=== PATIENT | female | born 1940 | race Caucasian/White ===

== ENCOUNTER 2018-12-25 01:14 | Observation (INO) | payer MEDICARE ==
[2018-12-25] MEDS ORDERED: IBUPROFEN 600 MG TAB PO STA (01:26)
[2018-12-25] MEDS ORDERED: ACETAMINOPHEN TAB 325 MG TAB PO STA (01:26)
--- NOTE | 2018-12-25 01:29 | ED ---
General Adult HPI - General Chief complaint: Chest Pain Stated complaint: Chest pain Time Seen by Provider: 12/25/18 01:26 Source: patient Mode of arrival: ambulatory Limitations: no limitations - History of Present Illness Initial comments: Bea is a pleasant 78-year-old female who presents to the emergency department today for evaluation of burning retrosternal chest pain and not feeling well. Patient reports that she lives in the [facility] but is visiting up here for a meditation retreat. Patient reports she was in her usual state of health throughout the day today. She states that in the afternoon she felt some right- sided chest pain and laid down and relax for a short while. She was able to eat dinner but then felt worsening epigastric and retrosternal chest pain. Patient discussed this discomfort with her friend who encouraged her to come the ER for further evaluation. Patient describes the pain as a burning and discomfort. She has only mild shortness of breath and palpitations. Patient reports she's been worked up for cardiac complaints in the past, she states that she has had a stress test and a cardiac computed tomography scan and was told that she had only minimal calcification of her arteries. She has no other cardiac history no history of arrhythmia she is on no antiplatelet or anticoagulant medications. Patient states that she feels the burning she is experiencing is probably related to asthma more than it is her heart. states that she has been told that she has asthma in the past 2 years but reports she is usually triggered by cats. - Related Data Allergies Allergy/AdvReac Type Severity Reaction Status Date / Time bee pollen Allergy Anaphylaxis Verified 12/25/18 01:21 ciprofloxacin [From Cipro] Allergy Rash/Hives Verified 12/25/18 01:21 Review of Systems ROS Statement: Those systems with pertinent positive or pertinent negative responses have been documented in the HPI. ROS Other: All systems not noted in ROS Statement are negative. Past Medical History Past Medical History: Cancer, Diabetes Mellitus, Hypertension Additional Past Medical History / Comment(s): Breast CA, osteroporosis, knee and wrist fx. History of Any Multi-Drug Resistant Organisms: None Reported Past Surgical History: Bariatric Surgery, Cholecystectomy, Tonsillectomy Additional Past Surgical History / Comment(s): Bariatric surgery 2002 Past Psychological History: No Psychological Hx Reported Smoking Status: Never smoker Past Alcohol Use History: Rare Past Drug Use History: None Reported General Exam - General Exam Comments Initial Comments: Physical Exam GENERAL: Patient is well-developed and well-nourished. Patient is nontoxic and well-hydrated and is in no distress. HENT: Normocephalic, Atraumatic. EYES: PERRL, EOMI PULMONARY: Unlabored respirations. No audible rales rhonchi or wheezing was noted. CARDIOVASCULAR: Irregularly irregular tachycardic Warm and well-perfused extremities ABDOMEN: Soft and nontender with normal bowel sounds. SKIN: Skin is clear with no lesions or rashes and otherwise unremarkable. : Deferred NEUROLOGIC: Patient is alert and oriented x3. Moving all extremities spontaneously MUSCULOSKELETAL: Normal extremities with adequate strength and full range of motion. No lower extremity swelling or edema. No calf tenderness. PSYCHIATRIC: Normal psychiatric evaluation Limitations: no limitations Course Vital Signs 12/25/18 12/25/18 12/25/18 01:16 03:46 04:33 Temperature 100.9 F H 98.2 F Pulse Rate 124 H 104 H 90 Respiratory 20 18 16 Rate Blood Pressure 147/84 118/61 118/61 O2 Sat by Pulse 97 97 97 Oximetry - Reevaluation(s) Reevaluation #1: Patient was reevaluated, her fever has resolved, her heart rate hasn't improved however she remains in A. fib with a rate in the 90s to low 100s at this time I do not feel any rate control is indicated, heparin will be started 12/25/18 03:30 Medical Decision Making - Medical Decision Making The patient was seen and evaluated, history is obtained from the patient Cardiac workup was initiated next an initial EKG reveals A. fib with RVR this is a new diagnosis for the patient Anti-paramedics and fluids were ordered Patient was reevaluated after antipyretics and was found that her heart rate had improved however she remains in A. fib Labs resulted with significant abnormalities including a potassium of only 2.6, by mouth and IV replacement was ordered Patient's heart rate normalized after IV fluids, there is no indication at this time for IV rate management IV heparin was ordered By mouth metoprolol was ordered Final given the patient is 78-year-old presented with acute chest pain and new- onset A. fib and RVR which is now normalized I will plan to admit the patient for evaluation by cardiology. Patient was agreeable with this plan. Admission orders were placed. Cardiology was consult it in the neck was ordered. - Lab Data Result diagrams: 12/25/18 01:50 12/25/18 01:50 Lab Results 12/25/18 12/25/18 12/25/18 Range/Units 01:50 01:50 01:50 WBC 14.2 H (3.8-10.6) k/uL RBC 4.77 (3.80-5.40) m/uL Hgb 12.6 (11.4-16.0) gm/dL Hct 41.8 (34.0-46.0) % MCV 87.5 (80.0-100.0) fL MCH 26.5 (25.0-35.0) pg MCHC 30.3 L (31.0-37.0) g/dL RDW 15.4 (11.5-15.5) % Plt Count 255 (150-450) k/uL Neutrophils % 84 % Lymphocytes % 10 % Monocytes % 5 % Eosinophils % 0 % Basophils % 0 % Neutrophils # 12.0 H (1.3-7.7) k/uL Lymphocytes # 1.4 (1.0-4.8) k/uL Monocytes # 0.7 (0-1.0) k/uL Eosinophils # 0.0 (0-0.7) k/uL Basophils # 0.0 (0-0.2) k/uL PT (9.0-12.0) sec INR (<1.2) APTT (22.0-30.0) sec Sodium 137 (137-145) mmol/L Potassium 2.6 L* (3.5-5.1) mmol/L Chloride 98 (98-107) mmol/L Carbon Dioxide 26 (22-30) mmol/L Anion Gap 13 mmol/L BUN 17 (7-17) mg/dL Creatinine 0.63 (0.52-1.04) mg/dL Est GFR (CKD-EPI)AfAm >90 (>60 ml/min/1.73 sqM) Est GFR (CKD-EPI)NonAf 87 (>60 ml/min/1.73 sqM) Glucose 182 H (74-99) mg/dL Plasma Lactic Acid Yousif 1.2 (0.7-2.0) mmol/L Calcium 8.0 L (8.4-10.2) mg/dL Total Bilirubin 0.7 (0.2-1.3) mg/dL AST 34 (14-36) U/L ALT 40 (9-52) U/L Alkaline Phosphatase 95 (38-126) U/L Troponin I (0.000-0.034) ng/mL Total Protein 6.8 (6.3-8.2) g/dL Albumin 4.2 (3.5-5.0) g/dL Urine Color Urine Appearance (Clear) Urine pH (5.0-8.0) Ur Specific [place] (1.001-1.035) Urine Protein (Negative) Urine Glucose (UA) (Negative) Urine Ketones (Negative) Urine Blood (Negative) Urine Nitrite (Negative) Urine Bilirubin (Negative) Urine Urobilinogen (<2.0) mg/dL Ur Leukocyte Esterase (Negative) 12/25/18 12/25/18 12/25/18 Range/Units 01:50 01:50 03:45 WBC (3.8-10.6) k/uL RBC (3.80-5.40) m/uL Hgb (11.4-16.0) gm/dL Hct (34.0-46.0) % MCV (80.0-100.0) fL MCH (25.0-35.0) pg MCHC (31.0-37.0) g/dL RDW (11.5-15.5) % Plt Count (150-450) k/uL Neutrophils % % Lymphocytes % % Monocytes % % Eosinophils % % Basophils % % Neutrophils # (1.3-7.7) k/uL Lymphocytes # (1.0-4.8) k/uL Monocytes # (0-1.0) k/uL Eosinophils # (0-0.7) k/uL Basophils # (0-0.2) k/uL PT 9.6 (9.0-12.0) sec INR 0.9 (<1.2) APTT 26.4 (22.0-30.0) sec Sodium (137-145) mmol/L Potassium (3.5-5.1) mmol/L Chloride (98-107) mmol/L Carbon Dioxide (22-30) mmol/L Anion Gap mmol/L BUN (7-17) mg/dL Creatinine (0.52-1.04) mg/dL Est GFR (CKD-EPI)AfAm (>60 ml/min/1.73 sqM) Est GFR (CKD-EPI)NonAf (>60 ml/min/1.73 sqM) Glucose (74-99) mg/dL Plasma Lactic Acid Yousif (0.7-2.0) mmol/L Calcium (8.4-10.2) mg/dL Total Bilirubin (0.2-1.3) mg/dL AST (14-36) U/L ALT (9-52) U/L Alkaline Phosphatase (38-126) U/L Troponin I <0.012 (0.000-0.034) ng/mL Total Protein (6.3-8.2) g/dL Albumin (3.5-5.0) g/dL Urine Color Yellow Urine Appearance Clear (Clear) Urine pH 5.5 (5.0-8.0) Ur Specific [place] 1.016 (1.001-1.035) Urine Protein Negative (Negative) Urine Glucose (UA) Negative (Negative) Urine Ketones 1+ H (Negative) Urine Blood Negative (Negative) Urine Nitrite Negative (Negative) Urine Bilirubin Negative (Negative) Urine Urobilinogen <2.0 (<2.0) mg/dL Ur Leukocyte Esterase Negative (Negative) - EKG Data -: EKG Interpreted by Me EKG Comments: EKG was obtained due to complaint of chest pain and tachycardia, EKG obtained at 1:25 AM, this is a narrow complex irregularly irregular rhythm consistent with A. fib with RVR. Normal axis, normal intervals, [facility] [place] 4, QTC [id number] acute ST elevations or depressions no evidence of acute ischemia or infarction. Disposition Clinical Impression: Atrial fibrillation with RVR, Chest pain Disposition: ADMITTED IP TO THIS HOSP Condition: Stable Is patient prescribed a controlled substance at d/c from ED?: No Referrals: None,Stated [REFERRING] - 1-2 days
[2018-12-25 01:58] LABS: Basophils % (A) 0 %; Eosinophils % (A) 0 %; HCT 41.8 % (34.0-46.0); HGB 12.6 gm/dL (11.4-16.0); Lymphocytes # (A) 1.4 k/uL (1.0-4.8); Lymphocytes % (A) 10 %; MCH 26.5 pg (25.0-35.0); MCHC 30.3 g/dL (31.0-37.0); MCV 87.5 fL (80.0-100.0); Mean Platelet Volume 7.1; Monocytes # (A) 0.7 k/uL (0-1.0); Monocytes % (A) 5 %; Neutrophils % (A) 84 %; Platelet Count 255 k/uL (150-450); RBC 4.77 m/uL (3.80-5.40); RDW 15.4 % (11.5-15.5); WBC 14.2 k/uL (3.8-10.6)
[2018-12-25] MEDS: SODIUM CHLORIDE 0.9% 1,000 ML IV SCH ×3 (02:07→21:51)
[2018-12-25 02:08] LABS: INR 0.9 (<1.2); Partial Thromboplastin Time 26.4 sec (22.0-30.0); Prothrombin Time 9.6 sec (9.0-12.0)
[2018-12-25 02:11] LABS: ALT 40 U/L (9-52); AST 34 U/L (14-36); African American GFR (CKD) >90 (>60 ml/min/1.73 sqM); Albumin 4.2 g/dL (3.5-5.0); Alkaline Phosphatase 95 U/L (38-126); Anion Gap 13 mmol/L; Blood Urea Nitrogen 17 mg/dL (7-17); Carbon Dioxide 26 mmol/L (22-30); Chloride 98 mmol/L (98-107); Glucose 182 mg/dL (74-99); Sodium 137 mmol/L (137-145); Total Bilirubin 0.7 mg/dL (0.2-1.3); Total Protein 6.8 g/dL (6.3-8.2)
[2018-12-25] MEDS ORDERED: MORPHINE SULFATE 4 MG/ML SYRINGE IVP STA (02:13)
[2018-12-25 02:16] LABS: Potassium 2.6 mmol/L (3.5-5.1)
[2018-12-25] MEDS ORDERED: Potassium Replacement Protocol 1 EACH MISC MISCELLANE PRN (02:19)
[2018-12-25] MEDS: POTASSIUM CHLORIDE ER 20 MEQ TAB.ER PO SCH ×3 (02:27→06:21)
[2018-12-25] MEDS: POTASSIUM CHLORIDE 10 MEQ in WATER FOR INJECTION 1 100ML.BAG IVPB SCH ×6 (02:36→10:30)
[2018-12-25] MEDS ORDERED: SODIUM CHLORIDE 0.9% 1,000 ML IV ONE (03:29)
[2018-12-25] MEDS ORDERED: HEPARIN SODIUM,PORCINE 5,000 UNIT/ML 1 ML VIAL IV ONE (03:54)
[2018-12-25] MEDS ORDERED: HEPARIN SODIUM,PORCINE 5,000 UNIT/ML 1 ML VIAL IV PRN (03:54)
[2018-12-25 04:00] LABS: Appearance,Urine Clear (Clear); Bilirubin,Urine Negative (Negative); Blood,Urine Negative (Negative); Color,Urine Yellow; Glucose,Urine (UA) Negative (Negative); Ketones,Urine 1+ (Negative); Leukocyte Esterase,Urine Negative (Negative); Nitrite,Urine Negative (Negative); PH, Urine 5.5 (5.0-8.0); Protein,Urine Negative (Negative); Specific Gravity,Urine 1.016 (1.001-1.035); Urobilinogen,Urine <2.0 mg/dL (<2.0)
[2018-12-25] MEDS ORDERED: MORPHINE SULFATE 4 MG/ML SYRINGE IV PRN (04:00)
--- NOTE | 2018-12-25 04:03 | XR ---
EXAM: XR Chest, 2 Views CLINICAL HISTORY: Fever. TECHNIQUE: Frontal and lateral views of the chest. COMPARISON: No relevant prior studies available. FINDINGS: Lungs: Slightly low lung volumes with probable basilar atelectasis. Mild elevation of right hemidiaphragm. No evidence of pulmonary edema. Pleural space: No significant pleural effusion. No pneumothorax. Heart: Unremarkable. No cardiomegaly. Mediastinum: Unremarkable. Bones/joints: Osseous degenerative changes. IMPRESSION: Slightly low lung volumes and mild elevation of right hemidiaphragm with probable basilar atelectasis. Otherwise unremarkable CXR.
[2018-12-25] MEDS: HEPARIN SOD,PORK IN 0.45% NACL 25,000 UNIT in 0.45% NACL 1 250ML.BAG IV SCH (04:19)
[2018-12-25] MEDS: METOPROLOL TARTRATE 25 MG TAB PO SCH ×3 (04:32→20:38)
[2018-12-25 05:54] VITALS: BMI 31.4
--- NOTE | 2018-12-25 10:13 | CONS ---
CONSULTATION CHIEF COMPLAINT: Chest pain. Bea is a 78-year-old lady with history of hypertension who lives in [place], was in [facility] for and during that time had an episode of chest discomfort. It is mild to moderate intensity, precordial, radiated across the chest, it was sharp and came on at rest. There was no shortness of breath and it was somewhat pleuritic in nature. On her initial arrival, she was found to be in atrial fibrillation with poorly controlled ventricular rate and poor R-wave progression with nonspecific ST-T wave changes. Patient tells me that she does not have a history of atrial fibrillation. Patient apparently had a CT scan of the chest 5 years ago and was told she had mild coronary artery disease, also had a negative stress test 2 years ago. At the time of my evaluation this morning, she appears comfortable at rest. Chest discomfort has improved, her low-grade fever that she had when she first arrived has also improved. Her labs show that the potassium was very low when she first came in and this is improved with potassium supplements. We only have one set of troponin that is normal. CBC shows a hemoglobin of 12.6. I talked to patient about her treatment options in terms of atrial fibrillation, including transesophageal echo followed by cardioversion. She wants to hold off on this, go follow up with her own chemical research technician and address this issue down the road. Heart rate is well controlled this morning. I will continue the current medication. The exact etiology for patient's chest pain is unclear. I am going to review the echocardiogram and if necessary perform a stress test. I would also obtain a D-dimer to rule out pulmonary embolism. I will obtain a TSH if one has not been done. Patient apparently had a low-grade fever when she first arrived. I am going to let the primary address this. PAST MEDICAL HISTORY: Significant for hypertension. CURRENT MEDICATIONS: Include vitamin A, vitamin K, Benadryl, Ambien, Zantac, Klor-Con, magnesium, Drisdol, Zyrtec, chlorthalidone, calcium, vitamin C, and albuterol. Patient is allergic to CIPRO. FAMILY HISTORY: Significant for alcoholic cirrhosis in mother. SOCIAL HISTORY: Negative for smoking, EtOH abuse or drug abuse. REVIEW OF SYSTEMS: HEENT is unremarkable. CARDIAC: As described above. RESPIRATORY: As described above. GI: Negative. GENITOURINARY: Negative. ALLERGY/IMMUNOLOGY: Negative. SKIN: Negative. MUSCULOSKELETAL: Significant for arthritis. PSYCHOSOCIAL: Negative. ENDOCRINE: Negative. DERM: Negative. CONSTITUTIONAL: Negative. ONCOLOGICAL: Negative. The rest of the system review is not relevant. PHYSICAL EXAM: Patient is comfortable at rest. Afebrile. Heart rate is 85 beats per minute. Blood pressure is 118/60, respiratory rate is 16, O2 sat is 96% on room air. There is no jugular venous distention. Chest exam reveals good air entry bilaterally. Heart exam reveals first and second heart sounds, irregular rhythm. No murmur. No rub. Abdomen is soft. Exam of extremities did not reveal any edema. Peripheral pulses are felt. LABS: Show that the hemoglobin is 12.6. Troponin is negative. Creatinine is normal. ASSESSMENT: 1. Persistent atrial fibrillation with controlled ventricular rate. 2. Precordial chest pain. 3. Hypertension. 4. Hypokalemia. PLAN: I will continue with rate control and anticoagulation. I will switch her from heparin to Eliquis on discharge. She will follow up with her own chemical research technician and this issue will be further addressed in the outpatient setting. Chest pain, will obtain serial CPKs and EKGs. Follow the echo results. If necessary, perform a stress test on her. Hypokalemia, potassium had been supplemented. This probably related to the diuretics that she is on. She will need a higher dose of potassium supplements on discharge or we may find a non-diuretic antihypertensive. I answered the patient's questions at length. Will decide on further course of action based on how her symptoms evolve and testing progresses. MMODL / IJN: [id number] /
[2018-12-25 10:14] LABS: D-Dimer 0.37 mg/L FEU (<0.60); Partial Thromboplastin Time 40.1 sec (22.0-30.0)
--- NOTE | 2018-12-25 11:25 | ECHOF ---
Referral Reason:new onset afib, chest pain MEASUREMENTS -------- HEIGHT: 167.6 cm WEIGHT: 88.5 kg BP: 118/61 IVSd: 1.4 cm (0.6 - 1.1) LVIDd: 3.7 cm (3.9 - 5.3) LVPWd: 1.2 cm (0.6 - 1.1) IVSs: 1.7 cm LVIDs: 2.7 cm LVPWs: 1.5 cm Ao Diam: 3.4 cm (2.0 - 3.7) AV Cusp: 2.0 cm (1.5 - 2.6) LA Diam: 3.7 cm (2.7 - 3.8) MV EXCURSION: 12.755 mm (> 18.000) MV EF SLOPE: 88 mm/s (70 - 150) EPSS: 0.6 cm RAP: 5.00 mmHg RVSP: 34.59 mmHg FINDINGS -------- Atrial fibrillation. This was a technically adequate study. The left ventricular size is normal. There is mild concentric left ventricular hypertrophy. There is mild global hypokinesis of LV . Overall left ventricular systolic function is mildly impaired w ith, an EF between 45 - 50 %. The right ventricle is normal in size and function. The left atrium is normal in size. The right atrium is normal in size. Interatrial and interventricular septum intact. There is mild aortic valve sclerosis. The mitral valve is normal. Mild mitral annular calcification present. No mitral regurgitation. The tricuspid valve appears structurally normal. Moderate tricuspid regurgitation present. Right ventricular systolic pressure is normal at < 35 mmHg. There is no evidence of pulmonary hypertensio n. The right ventricular systolic pressure, as measured by Doppler, is 34.59mmHg. Pulmonic valve appears structurally normal. The aortic root, ascending aorta and aortic arch are normal. The pericardium is normal. CONCLUSIONS -------- 1. Atrial fibrillation. 2. This was a technically adequate study. 3. The left ventricular size is normal. 4. Overall left ventricular systolic function is mildly impaired with, an EF between 45 - 50 %. 5. The right ventricle is normal in size and function. 6. The left atrium is normal in size. 7. The right atrium is normal in size. 8. Interatrial and interventricular septum intact. 9. There is mild aortic valve sclerosis. 10. The mitral valve is normal. 11. Mild mitral annular calcification present. 12. No mitral regurgitation. 13. The tricuspid valve appears structurally normal. 14. Moderate tricuspid regurgitation present. 15. There is no evidence of pulmonary hypertension. 16. The right ventricular systolic pressure, as measured by Doppler, is 34.59mmHg. 17. Pulmonic valve appears structurally normal. 18. The aortic root, ascending aorta and aortic arch are normal. 19. The pericardium is normal. FOOD SERVICE HELPER: Julio Sweet RDCS
[2018-12-25] MEDS ORDERED: IBUPROFEN 600 MG TAB PO PRN (14:47)
[2018-12-25] MEDS ORDERED: IBUPROFEN 800 MG TAB PO PRN (15:38)
[2018-12-25] MEDS ORDERED: MELATONIN 5 MG TABLET PO SCH (21:00)
--- NOTE | 2018-12-25 22:09 | P.HPIM ---
History of Present Illness H&P Date: 12/25/18 Chief Complaint: Chest pressure Ms. Cook is a pleasant 78-year-old female with a past medical history of breast cancer, diabetes mellitus, hypertension coming in with a chief complaint of burning retrosternal chest pain for the past 1 day. Patient states that she was at a meditation retreat where she started to notice burning type of chest pain associated with mild difficulty in breathing. Patient also felt really hot and her temperature was at 100.1 when she checked at the retreat. Patient denies having any cough. Along with the chest pain she denies having any diaphoresis or vomiting but reports that she was nauseous. Patient denies having any sick contacts. No chills or rigors. She denies having any orthopnea, PND or lower extremity edema. Patient thinks she might be having chest congestion. Patient denies having any abdominal pain nausea vomiting or diarrhea. No dysuria or hematuria. No headaches, blurring of vision or loss of consciousness. No weakness of her extremities. No neck rigidity. In the emergency department patient had EKG done showing atrial fibrillation that is new in onset for her. She also states that she follows with a c ardiologist and had a stress test done and also cardiac CT scan done and was told that she has minimal calcifications of her arteries. Patient's medication list was checked and she takes vitamin K 10 mg every day, she takes it to increase the metabolism of other vitamins. Patient denies having any histories of bleeding disorders. Review of Systems REVIEW OF SYSTEMS: CONSTITUTIONAL: No fever, no malaise, no fatigue. HEENT: No recent visual problems or hearing problems. Denied any sore throat. CARDIOVASCULAR: As per HPI PULMONARY: Patient denies having any cough or difficulty in breathing GASTROINTESTINAL: No diarrhea, no nausea, no vomiting, no abdominal pain. NEUROLOGICAL: No headaches, no weakness, no numbness. HEMATOLOGICAL: Denies any bleeding or petechiae. GENITOURINARY: Denies any burning micturition, frequency, or urgency. MUSCULOSKELETAL/RHEUMATOLOGICAL: Denies any joint pain, swelling, or any muscle pain. ENDOCRINE: Denies any polyuria or polydipsia. The rest of the 14-point review of systems is negative. Past Medical History Past Medical History: Cancer, Diabetes Mellitus, Hypertension Additional Past Medical History / Comment(s): Breast CA, osteroporosis, knee and wrist fx. Pt states she is not diabetic anymore, she does not take any medications for DM History of Any Multi-Drug Resistant Organisms: None Reported Past Surgical History: Bariatric Surgery, Cholecystectomy, Tonsillectomy Additional Past Surgical History / Comment(s): Bariatric surgery 2002 Past Psychological History: No Psychological Hx Reported Smoking Status: Never smoker Past Alcohol Use History: Rare Past Drug Use History: None Reported - Past Family History Mother Family Medical History: Liver Disease Additional Family Medical History / Comment(s): ETOH, cirrhosis of liver Father Family Medical History: CVA/TIA Additional Family Medical History / Comment(s): lived to be 91,ETOH, parkinsons Sister(s) Family Medical History: Asthma, COPD Medications and Allergies Home Medications Medication Instructions Recorded Confirmed Type Albuterol Inhaler [Ventolin Hfa 1 - 2 puff INHALATION RT-Q6H PRN 12/25/18 12/25/18 History Inhaler] Ascorbic Acid [Vitamin C] 1,000 mg PO DAILY 12/25/18 12/25/18 History Calcium Carbonate [Calcium] 1,200 mg PO DAILY 12/25/18 12/25/18 History Cetirizine HCl [Zyrtec] 10 mg PO DAILY 12/25/18 12/25/18 History Chlorthalidone 25 mg PO DAILY 12/25/18 12/25/18 History Denosumab [Prolia] 60 mg INJ Q182D 12/25/18 12/25/18 History Ergocalciferol (Vitamin D2) 50,000 unit PO DAILY 12/25/18 12/25/18 History [Drisdol] Fluticasone Nasal Delta [Flonase 1 spray EA NOSTRIL DAILY PRN 12/25/18 12/25/18 History Nasal Delta] Magnesium Oxide [Mag-Ox] 400 mg PO DAILY 12/25/18 12/25/18 History Magnesium Oxide [Mag-Ox] 800 mg PO HS 12/25/18 12/25/18 History Melatonin 10 mg PO DAILY 12/25/18 12/25/18 History Multivitamins, Thera [Multivitamin 1 tab PO DAILY 12/25/18 12/25/18 History (formulary)] Phytonadione [Vitamin K] 10 mg PO DAILY 12/25/18 12/25/18 History Potassium Chloride [Klor-Con 20] 20 meq PO BID 12/25/18 12/25/18 History Ranitidine HCl [Zantac] 75 mg PO DAILY 12/25/18 12/25/18 History Turmeric Root Extract [Turmeric] 1,500 mg PO BID 12/25/18 12/25/18 History Vitamin A Acetate [Vitamin A] 10,000 unit SL DAILY 12/25/18 12/25/18 History Zinc 100 tablet PO DAILY 12/25/18 12/25/18 History Zolpidem [Ambien] 5 mg PO HS PRN 12/25/18 12/25/18 History diphenhydrAMINE HCL [Benadryl] 25 mg PO HS 12/25/18 12/25/18 History Allergies Allergy/AdvReac Type Severity Reaction Status Date / Time bee pollen Allergy Anaphylaxis Verified 12/25/18 07:37 cat dander Allergy Dyspnea Verified 12/25/18 07:37 ciprofloxacin [From Cipro] Allergy Rash/Hives Verified 12/25/18 07:37 Physical Exam Vitals: Vital Signs Temp Pulse Pulse Resp BP BP Pulse Ox 12/25/18 08:00 97.4 F L 75 16 93/53 94 L 12/25/18 05:42 97.9 F 85 16 96 12/25/18 04:33 90 16 118/61 97 12/25/18 03:46 98.2 F 104 H 18 118/61 97 12/25/18 01:16 100.9 F H 124 H 20 147/84 97 Intake and Output 12/25/18 12/25/18 12/25/18 06:59 14:59 22:59 Intake Total 72.326 Balance 72.326 Intake: Intake, IV Titration 72.326 Amount Heparin Sod,Pork in 0.45% 72.326 NaCl 25,000 unit In 0.45 % NaCl 1 250ml.bag @ 11 UNITS/KG/HR 9.73 mls/hr IV .Q24H [facility] Rx#: [id number] Other: Weight 91.2 kg GEN. APPEARANCE: alert, in no apparent distress HEENT - normocephalic. Atraumatic. Pupils round and reactive to light. No pallor. No icterus. No thyromegaly. RESPIRATORY EXAM: Bilateral breath sounds are positive. No wheeze or crackles. CARDIOVASCULAR EXAM: S1 and S2 heard, irregularly irregular. GI/ABDOMINAL EXAM: Abdomen is soft nontender. No organomegaly. Normal bowel sounds. EXTREMITIES EXAM: No peripheral edema NEUROLOGICAL EXAM: alert, oriented X3, no focal neurological deficits PSYCHIATRIC EXAM: normal affect, normal mood SKIN EXAM: warm, dry, intact, normal color. Absent: rash Results CBC & Chem 7: 12/25/18 01:50 12/25/18 09:38 Labs: Abnormal Lab Results - Last 24 Hours (Table) 12/25/18 12/25/18 12/25/18 Range/Units 01:50 01:50 03:45 WBC 14.2 H (3.8-10.6) k/uL MCHC 30.3 L (31.0-37.0) g/dL Neutrophils # 12.0 H (1.3-7.7) k/uL APTT (22.0-30.0) sec Potassium 2.6 L* (3.5-5.1) mmol/L Glucose 182 H (74-99) mg/dL Calcium 8.0 L (8.4-10.2) mg/dL Urine Ketones 1+ H (Negative) 12/25/18 Range/Units 09:38 WBC (3.8-10.6) k/uL MCHC (31.0-37.0) g/dL Neutrophils # (1.3-7.7) k/uL APTT 40.1 H (22.0-30.0) sec Potassium (3.5-5.1) mmol/L Glucose (74-99) mg/dL Calcium (8.4-10.2) mg/dL Urine Ketones (Negative) Microbiology - Last 24 Hours (Table) 12/25/18 03:45 Urine Culture - Preliminary Urine,Voided Thrombosis Risk Factor Assmnt - Choose All That Apply Each Factor Represents 1 point: Obesity (BMI >25) Thrombosis Risk Factor Assessment Total Risk Factor Score: 1 Thrombosis Risk Factor Assessment Level: Low Risk Assessment and Plan Assessment: ASSESSMENT New onset atrial fibrillation Severe Hypokalemia History of breast cancer Hypertension Hyperlipidemia Type 2 diabetes mellitus Osteoporosis History of bariatric surgery in 2001 PLAN: Patient has been started on anticoagulation with heparin drip and currently her heart rate is under control, she has been started on metoprolol. Cardiology on board and following the patient. Patient's home medications have been reordered. Discussed with the patient in detail about vitamin K and will keep that on hold for now. We will continue to follow the patient closely and further recommendations to follow depending on the progress of the patient.
[2018-12-26 03:43] LABS: Basophils % (A) 0 %; Eosinophils # (A) 0.1 k/uL (0-0.7); Eosinophils % (A) 1 %; HGB 10.8 gm/dL (11.4-16.0); Lymphocytes # (A) 2.3 k/uL (1.0-4.8); Lymphocytes % (A) 35 %; MCH 29.1 pg (25.0-35.0); MCHC 31.7 g/dL (31.0-37.0); MCV 91.8 fL (80.0-100.0); Mean Platelet Volume 7.4; Monocytes # (A) 0.4 k/uL (0-1.0); Monocytes % (A) 7 %; Neutrophils # (A) 3.4 k/uL (1.3-7.7); Neutrophils % (A) 53 %; Platelet Count 214 k/uL (150-450); RBC 3.71 m/uL (3.80-5.40); RDW 15.5 % (11.5-15.5); WBC 6.4 k/uL (3.8-10.6)
[2018-12-26 03:54] LABS: African American GFR (CKD) >90 (>60 ml/min/1.73 sqM); Anion Gap 7 mmol/L; Blood Urea Nitrogen 16 mg/dL (7-17); Calcium 6.7 mg/dL (8.4-10.2); Carbon Dioxide 22 mmol/L (22-30); Chloride 108 mmol/L (98-107); Cholesterol 88 mg/dL (<200); Glucose 136 mg/dL (74-99); HDL Cholesterol 32 mg/dL (40-60); LDL Cholesterol,Calculated 32 mg/dL (0-99); Potassium 2.9 mmol/L (3.5-5.1); Sodium 137 mmol/L (137-145); Triglycerides 119 mg/dL (<150)
[2018-12-26] MEDS: HEPARIN SOD,PORK IN 0.45% NACL 25,000 UNIT in 0.45% NACL 1 250ML.BAG IV SCH (06:33)
[2018-12-26] MEDS ORDERED: POTASSIUM CHLORIDE ER 20 MEQ TAB.ER PO STA (07:05)
[2018-12-26] MEDS ORDERED: POTASSIUM CHLORIDE 20 MEQ in WATER FOR INJECTION 1 100ML.BAG IVPB ONE ×2 (08:00→12:00)
[2018-12-26] MEDS ORDERED: LORATADINE 10 MG TAB PO SCH (09:00)
[2018-12-26] MEDS ORDERED: APIXABAN 5 MG TAB PO SCH (09:00)
[2018-12-26] MEDS ORDERED: ASPIRIN 325 MG TAB PO SCH (09:00)
[2018-12-26] MEDS ORDERED: FAMOTIDINE 20 MG TAB PO SCH (09:00)
[2018-12-26] MEDS ORDERED: CHLORTHALIDONE 25 MG TAB PO SCH (09:00)
[2018-12-26] MEDS: METOPROLOL TARTRATE 25 MG TAB PO SCH (09:08)
[2018-12-26 11:19] VITALS: BP 102/56; PULSE 67; RESP 18; TEMP 98.1
--- NOTE | 2018-12-26 11:39 | P.PN ---
Subjective Progress Note Date: 12/26/18 This is a 78-year-old female with history of hypertension, she lives in [facility] [place], presented to the hospital with symptoms of chest discomfort was seen in consultation yesterday by Dr. Higgins. She was found on EKG to have atrial fibrillation which apparently was new for the patient. Patient did have stress test as well as an echo performed with her pattern designer which were both reported to be normal. Dr. Eason did have a discussion with the patient regarding proceeding today with a transesophageal echocardiogram and subsequent cardioversion.. Patient continues to be in atrial fibrillation this morning her rate is under good control. Her potassium on adm ission to the hospital was 2.6, after replacement 4.1 yesterday, and again 2.9 this morning. Patient did have a replacement orders put in and we've requested a repeat potassium to be drawn at 11 AM this morning, if her potassium level is stable she may be able to be discharged home today from our perspective. We have discontinued her chlorthalidone which she was taking at home and if increase the dose of potassium and she was taking at home. Blood pressure this morning 102/56, heart rate in the 60s, 95% on room air. Objective - Vital Signs Vital signs: Vital Signs Temp 98.1 F 12/26/18 11:17 Pulse 67 12/26/18 11:17 Resp 18 12/26/18 11:17 BP 102/56 12/26/18 11:17 Pulse Ox 95 12/26/18 11:17 Intake & Output 12/25/18 12/26/18 12/26/18 18:59 06:59 18:59 Intake Total 552.326 101.958 240 Output Total 800 Balance -247.674 101.958 240 Weight 93.2 kg Intake: Intake, IV Titration 72.326 101.958 Amount Heparin Sod,Pork in 0.45% 72.326 101.958 NaCl 25,000 unit In 0.45 % NaCl 1 250ml.bag @ 11 UNITS/KG/HR 9.73 mls/hr IV .Q24H GAIL Rx#: [id number] Oral 480 240 Output: Urine 800 Other: Voiding Method Toilet # Voids 1 - Exam PHYSICAL EXAMINATION: GENERAL: 78-year-old female in no acute distress at the time of my examination HEENT: Head is atraumatic, normocephalic. Pupils equal, round. Sclera anicteric. Conjunctiva are clear. Mucous membranes of the mouth are moist. Neck is supple. There is no elevated jugular venous pressure. No carotid bruit is heard. HEART EXAMINATION: Heart S1 and S2 irregularly irregular CHEST EXAMINATION: Lungs are clear to auscultation and precussion. No chest wall tenderness is noted on palpation or with deep breathing. ABDOMEN: Soft, nontender. Bowel sounds are heard. No organomegaly noted. EXTREMITIES: 2+ peripheral pulses with no evidence of peripheral edema and no calf tenderness noted. NEUROLOGIC patient is awake, alert and oriented 3 . . - Labs CBC & Chem 7: 12/26/18 03:14 12/26/18 03:14 Labs: Abnormal Lab Results - Last 24 Hours (Table) 12/25/18 12/26/18 12/26/18 Range/Units 17:43 03:14 03:14 RBC 3.71 L (3.80-5.40) m/uL Hgb 10.8 L (11.4-16.0) gm/dL APTT 38.4 H (22.0-30.0) sec Potassium 2.9 L (3.5-5.1) mmol/L Chloride 108 H (98-107) mmol/L Glucose 136 H (74-99) mg/dL Calcium 6.7 L (8.4-10.2) mg/dL HDL Cholesterol 32 L (40-60) mg/dL 12/26/18 Range/Units 03:14 RBC (3.80-5.40) m/uL Hgb (11.4-16.0) gm/dL APTT 57.5 H (22.0-30.0) sec Potassium (3.5-5.1) mmol/L Chloride (98-107) mmol/L Glucose (74-99) mg/dL Calcium (8.4-10.2) mg/dL HDL Cholesterol (40-60) mg/dL Microbiology - Last 24 Hours (Table) 12/25/18 01:50 Blood Culture - Preliminary Blood No Growth after 24 hours 12/25/18 03:45 Urine Culture - Preliminary Urine,Voided Assessment and Plan Plan: Assessment and plan #1 persistent atrial fibrillation, rate today under adequate control #2 hypertension #3 hypokalemia Plan Echocardiogram with Doppler study revealed an ejection fraction of 45-50%, moderate tricuspid regurgitation. After Yumi did have a lengthy discussion with the patient regarding proceeding with a transesophageal echocardiogram with subsequent cardioversion, he also discussed repeating a stress test, patient refused to have either procedure done, wishes to continue with medications only. Early on Eliquis for anticoagulation. We will replace the patient's potassium and repeat a level this morning. If stable she may be able to be discharged home. We did discontinue her chlorthalidone an increase her home dose of potassium. Patient has been directed to follow-up with her pattern designer in the [place] area, she states she has an appointment early January. DNP note has been reviewed, I agree with a documented findings and plan of care. Patient was seen and examined.
[2018-12-26] MEDS ORDERED: MAGNESIUM OXIDE 400 MG TAB PO SCH (12:00)
[2018-12-26] MEDS ORDERED: CALCIUM CARBONATE 500 MG CHEWABLE PO SCH (12:00)
[2018-12-26] MEDS ORDERED: POTASSIUM CHLORIDE ER 10 MEQ TAB.ER.PRT PO SCH (21:00)
== END 2018-12-26 14:31 | disposition home or self-care (01) ==
LOC: EC 01:14 → 3SCARD 04:04
PROVIDERS: ADMIT Internal Medicine; ATTEND Internal Medicine
DX: R07.89 Other chest pain (principal); I48.1 Persistent atrial fibrillation; E87.6 Hypokalemia; I10 Essential (primary) hypertension; E11.9 Type 2 diabetes mellitus without complications; M81.0 Age-related osteoporosis without current pathological fracture; I25.10 Atherosclerotic heart disease of native coronary artery without angina pectoris; E78.5 Hyperlipidemia, unspecified; J45.909 Unspecified asthma, uncomplicated; M19.90 Unspecified osteoarthritis, unspecified site; R10.13 Epigastric pain; R50.9 Fever, unspecified; R11.0 Nausea; E66.9 Obesity, unspecified; Z68.33 Body mass index [BMI] 33.0-33.9, adult; Z79.899 Other long term (current) drug therapy; Z91.030 Bee allergy status; Z88.1 Allergy status to other antibiotic agents; Z91.048 Other nonmedicinal substance allergy status; Z85.3 Personal history of malignant neoplasm of breast; Z87.81 Personal history of (healed) traumatic fracture; Z98.84 Bariatric surgery status; Z90.49 Acquired absence of other specified parts of digestive tract; Z83.79 Family history of other diseases of the digestive system; Z81.1 Family history of alcohol abuse and dependence; Z82.0 Family history of epilepsy and other diseases of the nervous system; Z82.3 Family history of stroke; Z82.5 Family history of asthma and other chronic lower respiratory diseases
CPT/HCPCS: 96376; 96366 ×2; 96365; 96375; 99285; 36415; 93005; 93306; 85379; 80061; 80053; 80048; 83605; 83735; 84132 ×2; 84484; 85025 ×2; 85610; 85730 ×2; 81003; 87040; 87086; 71046; G0378 ×2; J2270; J1644 ×2; J3480 ×2